=== PATIENT | female | born 1970 | race Two or more races ===

== ENCOUNTER → 2021-04-25 | Emergency (ER) | payer OTHER ==
[~2021-04-25] VITALS: Ht 175.3 cm; Wt 70.3 kg
[2021-04-25 07:46] VITALS: BP 105/73
== END | disposition left against medical advice (07) ==
LOC: ER 07:40
DX: R45.851 Suicidal ideations (principal); Z53.21 Procedure and treatment not carried out due to patient leaving prior to being seen by health care provider